=== PATIENT | male | born 1940 | race Caucasian/White ===

== ENCOUNTER → 2017-01-22 | Outpatient (CLI) | payer OTHER, MEDICARE ==
[~2017-01-22] VITALS: Ht 152.4 cm; Wt 48.5 kg
[~2017-01-22] MED LIST: BISA5TAB PO; CHLORHEXIDINE GLUCONATE 2 % 1 PACK (2 CLOTHS) TOPICAL PRN; CYAN1000P IM; DIPH25; HYDR-3580 PO; INSULIN HUMAN REGULAR 1,000 UNITS/10 ML VIAL SQ PRN; K-TA10TA PO; K-TA10TA5 PO; LACTATED RINGER'S 1000 ML IV PRN; LEVA500T33 PO; METOPROLOL TARTRATE 25 MG TAB PO PRN; NORC7.5T PO; POVIDONE IODINE 5% (ANTISEPSIS KIT) 4 APPLICATIONS EACH NARE PRN; PROPOFOL 200 MG/20 ML AMP IV ONE; SODIUM CHLORID 0.9% 500 ML IV PRN; SODIUM CHLORIDE 0.9% FLUSH 10 ML FLUSH IV FLUSH PRN; TEMA15CA PO; VITA100020 IM; XELO500T PO
[2017-01-22 08:15] VITALS: BP 127/78; PULSE 64; RESP 18; TEMP 97.8; O2SAT 100
--- NOTE | 2017-01-22 11:32 | PD.PROCEDR ---
GI Procedure PROCEDURE PERFORMED EGD with biopsy followed by an incomplete colonoscopy due to poor prep INDICATION FOR PROCEDURE Anemia, diarrhea PROCEDURE: The procedure, risks and benefits were discussed with Mr. Lacey and informed consent was obtained. Anesthesia sedated him with Diprivan. He was placed in the left lateral decubitus position. EGD: The Pentax videoscope was introduced through the oropharynx and advanced to the second portion of the duodenum under direct visualization. Retroflexion was performed in the stomach. 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 Retroflexion was performed in the rectum. Colonic prep was poor prep FINDINGS: This was an incomplete colonoscopy due to poor prep what little colon was seen was unremarkable ESTIMATED BLOOD LOSS: None SPECIMENS REMOVED: Jejunal biopsy COMPLICATIONS: None IMPRESSION: Irregular Z line Surgical changes consistent with gastrectomy and esophagojejunostomy Incomplete colonoscopy PLAN: Await biopsy Repeat colonoscopy Follow up in clinic post repeat colonoscopy Remi Bond MD Jan 22, 2017 11:32
[2017-01-22 11:34] VITALS: BP 155/84; PULSE 67; RESP 17; TEMP 97.4; O2SAT 100
--- NOTE | 2017-01-22 14:22 | EKG ---
Date Performed: 01/22/2017 Time Performed: 08:13:50 PTAGE: 76 years EKG: Sinus rhythm NORMAL ECG NO SIGNIFICANT CHANGE FROM PRIOR ELECTROCARDIOGRAM. PREVIOUS TRACING : 11/23/2013 08.28 DOCTOR: Mack Hastings Interpretating Date/Time 01/22/2017 14:20:40
== END ==
LOC: HEND 07:03
PROVIDERS: ATTEND Internal Medicine Gastroenterology
DX: D64.9 Anemia, unspecified (principal); R19.7 Diarrhea, unspecified; K22.9 Disease of esophagus, unspecified; Z01.810 Encounter for preprocedural cardiovascular examination
CPT/HCPCS: 00740; 00810; 43239; 45378; 88305; 93005; J1642